=== PATIENT | male | born 2000 | race African-American/Black ===

== ENCOUNTER 2022-07-03 09:12 | Emergency (ER) | payer OTHER, SELFPAY ==
[2022-07-03 10:06] VITALS: BP 117/70; PULSE 82; RESP 18; TEMP 36.9; O2SAT 100
[2022-07-03 10:57] LABS: Appearance Urine Clear (Clear); Bacteria Urine None Seen /hpf; Bilirubin Urine Negative (Negative); Blood Urine Trace (Negative); Color Urine Yellow (Yellow); Glucose Urine UA Negative (Negative); Ketones Urine Negative (Negative); Leukocyte Esterase Ur Negative LEU/UL (Negative); Nitrate Urine Negative (Negative); Non Pathogenic Casts 0-2; Protein Urine Negative (Negative); RBC Urine 0-2 /hpf (0-2); Specific Grav Ur 1.012 (1.001-1.035); Squamous Epithelial Cell Urine None seen /hpf (Few); Urobilinogen Urine 0.2 mg/dL (<2.0); WBC Urine 0-5 /hpf
[2022-07-03 11:36] LABS: Add Urine Microscopic? YES
--- NOTE | 2022-07-03 12:58 | ED.GENADULT ---
HPI - General Adult General Chief complaint: Urogenital-Male Stated complaint: I think I have an infection Time Seen by Provider: 07/03/22 12:03 History of Present Illness HPI narrative: This is a 22-year-old male presents to the ED with chief complaint of increased urinary frequency x2 weeks. Reports some irritation in the pelvic area. States yesterday he had pain with urination and noticed some blood. Since then he has been asymptomatic. Denies abdominal pain, flank pain, nausea, vomiting. Denies any large concern for STDs but would like testing. Denies discharge, scrotal pain or swelling. Related Data Allergies Allergy/AdvReac Type Severity Reaction Status Date / Time No Known Allergies Allergy Verified 07/03/22 13:04 Review of Systems Review of Systems: CONSTITUTIONAL: Denies fever, chills, or sweats. EYES: Denies visual changes, redness, or discharge. ENT: Denies rhinorrhea, congestion, sore throat, or otalgia. CARDIOVASCULAR: Denies chest pain, palpitations, or edema. RESPIRATORY: Denies cough or dyspnea. GASTROINTESTINAL: Denies abdominal pain, nausea, vomiting, or diarrhea. GENITOURINARY: Endorses urinary frequency and hematuria. Denies dysuria or discharge. Denies scrotal pain or swelling. SKIN: Denies rash or itching. MUSCULOSKELETAL: Denies back pain, joint pain, or myalgia. NEUROLOGIC: Denies headache, numbness, dizziness, or weakness. PSYCHIATRIC: Denies anxiety or depression. Exam Narrative: GENERAL: Well-appearing, well-nourished, and in no acute distress. HEAD: Normocephalic, atraumatic. EYES: PERRLA and EOMI. ENT: Nares clear, no rhinorrhea or epistaxis. Mucous membranes moist. Oropharynx without tonsillar hypertrophy exudate or other lesions. NECK: Supple. No adenopathy or masses. CHEST: No respiratory distress. Clear to auscultation. No wheezes rales or rhonchi HEART: Regular rate and rhythm. No murmur heard. Normal peripheral pulses. ABDOMEN: Soft, nontender, nondistended, normal active bowel sounds. Negative flank tenderness. EXTREMITIES: Normal range of motion. No edema. SKIN: Warm, dry, no rash. NEURO: Alert and oriented x3. No focal deficits. PSYCH: Normal mood and affect. Course Vital Signs Vital signs: Vital Signs Temperature 98.4 F 07/03/22 10:06 Pulse Rate 82 07/03/22 10:06 Respiratory Rate 18 07/03/22 10:06 Blood Pressure 117/70 07/03/22 10:06 Pulse Oximetry 100 07/03/22 10:06 Oxygen Delivery Room Air 07/03/22 10:06 Temperature 98.4 F 07/03/22 10:06 Pulse Rate 82 07/03/22 10:06 Respiratory Rate 18 07/03/22 10:06 Blood Pressure 117/70 07/03/22 10:06 Pulse Oximetry 100 07/03/22 10:06 Oxygen Delivery Room Air 07/03/22 10:06 Medical Decision Making MDM Narrative Medical decision making narrative: This is a 22-year-old male who presents to the ED with chief complaint of urinary frequency. Yesterday he had some hematuria. Vitals are stable. UA is grossly normal. GC and chlamydia sent off, he has little concern for STDs at this point. Symptoms consistent with a recently passed ureteral stone. His exam is grossly benign. Shared decision making regarding getting a CT scan for potential kidney stone. Patient elects not to get the CT scan as he understands that he might of recently passed the stone, and has a normal exam today. Encouraged to take Tylenol and ibuprofen as needed for pain. Discharged in stable condition and asymptomatic. Instructions given. Return precautions discussed, per measures discussed. Patient is understanding and agreeable to plan for discharge and the need for PCP follow-up. Vital Signs Vital Signs: Vital Signs Temperature 98.4 F 07/03/22 10:06 Pulse Rate 82 07/03/22 10:06 Respiratory Rate 18 07/03/22 10:06 Blood Pressure 117/70 07/03/22 10:06 Pulse Oximetry 100 07/03/22 10:06 Oxygen Delivery Room Air 07/03/22 10:06 Temperature 98.4 F 07/03/22 10:06 Pulse Rate 82 07/03/22
== END 2022-07-03 13:09 | disposition home or self-care (01) ==
PROVIDERS: General Practice; Emergency Provider Physician Assistant
DX: R35.0 Frequency of micturition (principal)
CPT/HCPCS: 81001; 87491; 87591; 99283